=== PATIENT | male | born 1980 | race Hispanic/Latino ===

== ENCOUNTER 2021-11-15 12:17 | Emergency (ER) | payer SELFPAY ==
[2021-11-15] MEDS ORDERED: Acetaminophen 500 MG TAB ONE (14:17)
[2021-11-15] MEDS ORDERED: Ketorolac Tromethamine 30 MG/ML VIAL ONE (14:17)
== END 2021-11-15 15:25 | disposition home or self-care (01) ==
LOC: CSHERS 12:17
DX: S39.012A Strain of muscle, fascia and tendon of lower back, initial encounter (principal); X50.9XXA Other and unspecified overexertion or strenuous movements or postures, initial encounter
CPT/HCPCS: 96372; 99282; J1885